=== PATIENT | female | born 1990 | race Caucasian/White ===

== ENCOUNTER → 2019-01-09 | Outpatient (CLI) | payer MEDICAID ==
[~2019-01-09] MED LIST: GADOTERATE 5 MMOL/10ML VIAL. INT ART ONE; IOHEXOL 300 MG/ML 50 ML VIAL. INT ART ONE; LIDOCAINE 1% Multi-Dose 20 ML VIAL. ID ONE
--- NOTE | 2019-01-09 16:21 | KCIC ---
MR arthrogram of the left shoulder HISTORY: Left shoulder pain after lifting injury May 2018. TECHNIQUE: Routine 4 plane sequences are obtained after intra-articular contrast injection. FINDINGS: Mild motion degradation. Acromioclavicular joint is intact. There is no evidence of a rotator cuff tear. No significant subdeltoid bursal fluid or contrast accumulation. No acute articular cartilage defect. Labral evaluation may be limited by the mild motion degradation. There is heterogeneity of the anteroinferior labrum on the Aber sequence, but labrum appears intact on other sequences. Mild signal at the posterior greater tuberosity likely due to small cysts or vessels. No aggressive bone destruction or acute fracture. IMPRESSION: 1. Heterogeneous appearance of the anteroinferior labrum, on the Aber sequence. This could indicate degeneration but there is no evidence of detachment or discrete tear. 2. No other internal derangement or acute abnormality is identified. Electronically signed by: Magdi Duong MD (01/09/2019 4:18 PM) [id number]
--- NOTE | 2019-01-09 17:04 | KCIC ---
PROCEDURE: Left shoulder injection using fluoroscopic guidance, prior to MR. HISTORY: Shoulder pain. TECHNIQUE: The procedure was explained to the patient as were potential risks, including among others infection, bleeding or allergic reaction. All questions were answered. Informed written and verbal consent was obtained. The shoulder was prepped and draped in the usual sterile manner. Following administration of local anesthetic, a 22-gauge needle was advanced into the anterior shoulder using bone landmarks. Following negative aspiration, 12 cc of a solution of 5 cc 1% lidocaine, 10 cc normal saline, and 0.1 cc gadolinium was injected without difficulty. Iodinated contrast was not utilized due to a history of contrast allergy during arthrogram at an outside institution. The needle was removed. There was good hemostasis at the injection site. The patient left in stable condition without immediate complication. A single spot image is obtained. FLUOROSCOPY TIME:?12 seconds Electronically signed by: Magdi Duong MD (01/09/2019 5:02 PM) [id number]
== END | disposition home or self-care (01) ==
LOC: KCIC 01-05 10:44
PROVIDERS: ATTEND Orthopaedic Surgery
DX: M25.512 Pain in left shoulder (principal)
CPT/HCPCS: 73040; 73222; A9575